=== PATIENT | male | born 1960 | race Caucasian/White ===

== ENCOUNTER 2016-02-24 13:43 | Inpatient (IN) | payer OTHER ==
[~2016-02-24] VITALS: Ht 185.4 cm; Wt 86.9 kg
[2016-02-24] MEDS ORDERED: SODIUM CHLORIDE 0.9% 1,000 ML ONE (16:22)
[2016-02-24] MEDS: NICOTINE 21 MG/24 HR TRANSDERM SCH (19:42)
[2016-02-24 20:00] VITALS: BP_SYST 94; RESP 18; TEMP 98.8
[2016-02-24 20:01] VITALS: Ht 185.4 cm; Wt 86.9 kg
[2016-02-24] MEDS ORDERED: GABAPENTIN 400 MG CAP PO SCH (22:25)
[2016-02-24] MEDS: cloNIDine 0.1 MG TAB PO SCH (22:29)
[2016-02-24] MEDS ORDERED: NON-FORMULARY MEDICATION PO SCH (22:30)
[2016-02-24] MEDS: MIRTAZAPINE 15 MG TAB PO SCH (22:55)
[2016-02-24] MEDS: HALOPERIDOL 5 MG TAB PO SCH (22:56)
[2016-02-24] MEDS: GABAPENTIN 400 MG CAP PO SCH (22:56)
[2016-02-24] MEDS: CITALOPRAM 20 MG TAB PO SCH (23:00)
[2016-02-25] MEDS: PANTOPRAZOLE 40 MG TAB PO SCH (06:20)
[2016-02-25 08:48] VITALS: BP_SYST 118; RESP 19; TEMP 97.6
[2016-02-25] MEDS: HALOPERIDOL 5 MG TAB PO SCH ×2 (08:51→20:54)
[2016-02-25] MEDS: NICOTINE 21 MG/24 HR TRANSDERM SCH (08:51)
[2016-02-25] MEDS: cloNIDine 0.1 MG TAB PO SCH ×2 (08:51→21:00)
[2016-02-25] MEDS: BUPROPION XL 150 MG TAB PO SCH (11:31)
[2016-02-25 19:00] VITALS: BP_SYST 90; RESP 18; TEMP 98.7
[2016-02-25] MEDS: MIRTAZAPINE 15 MG TAB PO SCH (20:52)
[2016-02-25] MEDS: GABAPENTIN 400 MG CAP PO SCH (20:54)
[2016-02-25] MEDS: CITALOPRAM 20 MG TAB PO SCH (20:54)
[2016-02-26] MEDS: PANTOPRAZOLE 40 MG TAB PO SCH (06:07)
[2016-02-26] MEDS: HALOPERIDOL 5 MG TAB PO SCH (08:36)
[2016-02-26] MEDS: cloNIDine 0.1 MG TAB PO SCH (08:36)
[2016-02-26] MEDS: BUPROPION XL 150 MG TAB PO SCH (08:36)
[2016-02-26] MEDS: NICOTINE 21 MG/24 HR TRANSDERM SCH (08:37)
[2016-02-26 08:41] VITALS: BP_SYST 90; RESP 18; TEMP 98.7
[2016-02-26 09:10] VITALS: BP_SYST 122; RESP 20; TEMP 98.2
[2016-02-26 11:30] VITALS: BP_SYST 122; RESP 20; TEMP 98.2
== END 2016-02-26 12:25 | disposition home or self-care (01) | DRG 885 ==
LOC: ENRESERVTM → ENRESERVDT → ER 13:43 → EMR 18:04 → PSY 19:35
PROVIDERS: ADMIT Psychiatry & Neurology Psychiatry; ATTEND Psychiatry & Neurology Psychiatry
DX: F25.9 Schizoaffective disorder, unspecified (principal); F22 Delusional disorders; I10 Essential (primary) hypertension; J44.9 Chronic obstructive pulmonary disease, unspecified; N40.0 Benign prostatic hyperplasia without lower urinary tract symptoms; E78.5 Hyperlipidemia, unspecified
CPT/HCPCS: 36415; 80053; 80165; 80307; 80320; 80329; 81003; 84439; 84443; 85025; 85610; 96360; 96361

== ENCOUNTER 2016-03-13 19:41 | Emergency (ER) | payer OTHER | END 2016-03-13 20:49 | disposition left against medical advice (07) | LOC: ER 19:41 | DX: Z53.21 Procedure and treatment not carried out due to patient leaving prior to being seen by health care provider (principal) | CPT/HCPCS: 36415; 80053; 81003; 83690; 85025 ==

== ENCOUNTER 2016-03-14 06:28 | Emergency (ER) | payer OTHER ==
[2016-03-14] MEDS ORDERED: OPTIRAY 350 100 ML VIAL HMH IV ONE (06:29)
[2016-03-14] MEDS ORDERED: SODIUM CHLORIDE 0.9% 1,000 ML ONE (07:42)
[2016-03-14] MEDS ORDERED: KETOROLAC 30 MG/ML VIAL ONE (08:09)
== END 2016-03-14 09:59 | disposition home or self-care (01) ==
LOC: ER 06:28
DX: R10.31 Right lower quadrant pain (principal); I10 Essential (primary) hypertension; F17.200 Nicotine dependence, unspecified, uncomplicated
CPT/HCPCS: 74177; 96361; 96374; 99284; J1885; Q9967